=== PATIENT | female | born 1985 | race Caucasian/White ===

== ENCOUNTER 2018-09-02 02:33 | Emergency (ER) | payer OTHER, BC, SELFPAY ==
[2018-09-02 02:33] VITALS: BP 167/103; PULSE 104; RESP 18; TEMP 36.9; O2SAT 100; BMI 27.9
[2018-09-02] MEDS: Ibuprofen 200 MG Tablet 400 MG PO (03:14)
--- NOTE | 2018-09-02 03:17 | ED.VISSUMM ---
- ER Visit Summary Date of Service: 09/02/18 Chief Complaint: Chemical exposure left eye History of Present Illness: The patient is a 32 F who presents with a chemical exposure to the left eye. This occurred about 30 minutes before presentation while at work. She was exposed to [employer] while cleaning a [employer]. This splashed into her left eye only. 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 He did immediately irrigate with water for about 20 minutes before presenting here. She complains of burning and watering as well as some mild blurry vision. She does not use contacts or glasses. Physical Examination: Afebrile heart rate 104 blood pressure 167/103 Patient does have some left periorbital edema there is some conjunctival injection slit-lamp examination with tetracaine and fluorescein does show fluorescein dye uptake from about the 6:00 to 9 o'clock position of the cornea extraocular motion intact without pain or palsy pupils are equally round and reactive to light anterior chamber deep and quiet Heart regular rate and rhythm Lungs clear Test Results: Initial eye pH is about 8. Emergency Department Course and Treatment: After examination the pH of the eye was checked. Fortunately it is only mildly alkaline at 8. Patient's eye was irrigated using a John lens. I spoke to poison control who had no recommendations beyond irrigation and ophthalmology referral. I did speak to Dr. Multani who is on-call for ophthalmology who also asked that we give the patient antibiotic ointment and he will see her in the office today patient advised to call the office this morning for close follow-up. Treatment Plan: [] Disposition: Discharge Impression: Corneal burn, left Chemical exposure left eye This note was generated with [employer] dictation software. It may contain incorrect words, spelling, and punctuation that were not noted in review of the chart prior to signing
[2018-09-02] MEDS: Tetracaine 0.5% Ophthalmic Bottle 1 DRP LEFT EYE (03:21)
[2018-09-02] MEDS: Fluorescein 1 MG STRIP 1 STRIP LEFT EYE (03:21)
--- NOTE | 2018-09-02 03:23 | ED.DEP ---
ED Disposition - Plan for ED Patient: Instructions: EYE EXPOSURE, Chemical Referrals: Zeferino Multani MD [STAFF PHYSICIAN] - Additional Instructions: Call Dr. Multani office this morning to be seen today.
[2018-09-02 03:52] VITALS: BP 154/100; PULSE 74; RESP 16; O2SAT 100
== END 2018-09-02 04:17 | disposition home or self-care (01) ==
LOC: ED 04:10
PROVIDERS: Emergency Provider Emergency Medicine
DX: T65.891A Toxic effect of other specified substances, accidental (unintentional), initial encounter (principal); T26.12XA Burn of cornea and conjunctival sac, left eye, initial encounter; Y92.9 Unspecified place or not applicable; Y93.89 Activity, other specified; Y99.0 Civilian activity done for income or pay; Z72.0 Tobacco use
CPT/HCPCS: 99284; J7030